=== PATIENT | male | born 1965 | race African-American/Black ===

== ENCOUNTER 2017-01-08 14:35 | Emergency (ER) | payer OTHER ==
--- NOTE | ~2017-01-08 | CR127 ---
[facility] A Service of [facility] & [facility] RADIOLOGY TEXT RESULTS PATIENT: NYDIA COVARRUBIAS LOCATION: [facility] : 65 UNIT #: [id number] AGE: [address]: Juliette Ron APRN SEX: M ORDER DR: [id number] [facility] [address] [place], [place] [address] [id number] E MR#: [id number] Acc #: [id number] NAME: NYDIA COVARRUBIAS : 1965 SEX: M STUDY DATE/TIME: 01/08/2017 14:41 UNIT: [facility] ROOM: STUDY DESCRIPTION: CR Foot Complete Min 3 View Rt Attending Physician: Juliette Ron A.P.R.N. Ordering Physician: Ed Doctor [id number] [facility] Primary Care Physician: Primary Care Physician No MEDICAL IMAGING REPORT This report is preliminary unless electronic signature is present EXAM Right foot, 3 views COMPARISON 3 views of the left foot dated August 21, 2016. INDICATIONS 51-year-old male with pain and swelling at the right big toe after dropping a chair on it 4 days ago. FINDINGS There is mild subchondral cystic change at the first metatarsophalangeal joint, consistent with mild osteoarthritis. Chronic ossicle is seen in the medial malleolus. Bones are anatomically aligned. No evidence of acute fracture. IMPRESSION No evidence acute fracture or dislocation of the right foot. Minimal degenerative change at the first metatarsophalangeal joint. Dictated by... Terence Dash M.D. THIS IS AN ELECTRONICALLY VERIFIED REPORT Terence Dash M.D. at 01/10/2017 4:19 PM Horace TD: 01/09/2017 07:36 JOB #: [id number] MEDICAL IMAGING REPORT Page 1 of 1 COPY
[~2017-01-08 14:35] MED LIST: DICLOFENAC PO; FAMOTIDINE PO; FLEXERIL10 MG PO; PEN-VEE K PO; PREDNISONE50 MG PO; PRILOSEC40 MG PO; TESSALON200 MG PO
== END 2017-01-08 16:44 | disposition home or self-care (01) ==
LOC: CED 14:35
DX: S90.31XA Contusion of right foot, initial encounter (principal); E11.9 Type 2 diabetes mellitus without complications; F17.200 Nicotine dependence, unspecified, uncomplicated; I10 Essential (primary) hypertension; W20.8XXA Other cause of strike by thrown, projected or falling object, initial encounter; Y93.89 Activity, other specified; Y92.009 Unspecified place in unspecified non-institutional (private) residence as the place of occurrence of the external cause
CPT/HCPCS: 29540; 73630; 99283